=== PATIENT | male | born 1950 | race Caucasian/White ===

== ENCOUNTER → 2018-10-15 | Outpatient (CLI) | payer MEDICARE | END | disposition home or self-care (01) | LOC: PCVCCLINIC 15:45 | PROVIDERS: ATTEND Internal Medicine Cardiovascular Disease | DX: I25.10 Atherosclerotic heart disease of native coronary artery without angina pectoris (principal); E78.5 Hyperlipidemia, unspecified; M13.88 Other specified arthritis, other site; Z72.89 Other problems related to lifestyle | CPT/HCPCS: 36415; 80061; 93005; G0463 ==

== ENCOUNTER → 2018-12-10 | Outpatient (CLI) | payer MEDICARE ==
--- NOTE | 2018-12-10 16:29 | PCVCIMAG ---
APPROVED REPORT Study performed: 12/10/2018 15:42:22 Exam: Stress Echocardiogram Indication: Physical Patient Location: Echo lab Stress Nurse: Katrina Miranda RN Status: routine Ht: 6 ft 0 in HR: 73 bpm BP: 120/85 mmHg Rhythm: NSR Procedure The patient underwent an Exercise Stress Test using the Jerald Protocol. Blood pressure, heart rate, and EKG were monitored. An Echocardiogram was performed by civil laboratory technician in four stages in quad fashion. At peak stress, four selected images were obtained and placed side by side with resting images for comparison. Stress Test Details Stress Test: Exercise stress testing was performed using a Jerald protocol. HR Resting HR: 73 bpmMax Heart Rate (APMHR): 153 bpm Max HR Achieved: 142 bpmTarget HR (85% APMHR): 130 bpm % of APMHR: 92 Recovery HR: 97 bpm HR response to stress: Normal HR response to stress BP Resting BP: 120/85 mmHg Max BP: 188/80 mmHg Recovery BP: 146/80 mmHg BP response to stress: Normal blood pressure response to stress. ECG Resting ECG: Sinus Rhythm Stress ECG: Sinus Rhythm Recovery ECG: Sinus Rhythm Clinical Reason for Termination: Maximal effort Exercise duration: 7 min sec Highest Stage Achieved: Stage 3: 3.4 mph at 14% grade. Exercise capacity: 10.10 METs Overall Exercise Capacity for Age: Normal Pre-Stress Echo The resting Echocardiogram showed normal left ventricular contractility with an estimated Ejection Fraction of about 55-60%. Normal wall motion in all segments on baseline images. Post-Stress Echo The stress Echocardiogram showed normal left ventricular contractility with an estimated Ejection Fraction of about 60-65%. Normal augmentation of wall motion in all segments on post stress images. Clinical No clinical or ECG evidence for ischemia. Conclusion Clinical Response: Non-ischemic Exercise Capacity: Average Stress ECG Response: Non-ischemic Stress Echo Images: Non-ischemic The left ventricle is normal in size and wall thickness in both the rest and stress images. Limited color doppler showed no valvular abnormalities. Normal pulmonary artery pressures. Other Information Study Quality: Good <Conclusion> The left ventricle is normal in size and wall thickness in both the rest and stress images. Limited color doppler showed no valvular abnormalities. Normal pulmonary artery pressures.
== END | disposition home or self-care (01) ==
LOC: PCVCIMAG 15:11
PROVIDERS: ATTEND Internal Medicine Cardiovascular Disease
DX: Z13.6 Encounter for screening for cardiovascular disorders (principal)
CPT/HCPCS: 93325; 93351

== ENCOUNTER → 2019-04-24 | Outpatient (CLI) | payer MEDICARE ==
--- NOTE | 2019-04-24 10:24 | PCVCIMAG ---
EXAM: ABDOMINAL ULTRASOUND COMPLETE INDICATION: Abdominal pain FINDINGS: Gallbladder: Multiple shadowing gallstones. No wall thickening or abnormal pericholecystic fluid. Liver: Normal in size measuring 18.0 cm in length. No focal masses. Bile ducts: No intra or extra hepatic bile duct dilatation. The common bile duct measures 4.2 mm. Pancreas: Unremarkable where seen. Spleen: Normal in size measuring 10.8 cm in greatest dimension. No focal masses. Right kidney: No hydronephrosis. Length measures 12.6 cm. Left kidney: No hydronephrosis. Length measures 12.8 cm. Inferior vena cava: Normal in size where seen. Aorta: Normal in caliber where seen. IMPRESSION: Multiple shadowing gallstones. Gallbladder otherwise unremarkable. LOC:[id number]
== END | disposition home or self-care (01) ==
LOC: PCVCIMAG 07:52
PROVIDERS: ATTEND Internal Medicine Cardiovascular Disease
DX: K80.20 Calculus of gallbladder without cholecystitis without obstruction (principal)
CPT/HCPCS: 76700